=== PATIENT | male | born 1955 | race Caucasian/White ===

== ENCOUNTER → 2016-10-24 | Outpatient (CLI) | payer OTHER ==
[~2016-10-24] MED LIST: LISINOPRIL10 MG PO
[2016-10-24 14:10] LABS: THYROID STIMULATING HORMONE 2.29 uIU/ml (0.34-5.60)
[2016-10-24 14:17] LABS: FREE THYROXIN (T4) 0.85 ng/dL (0.58-1.64)
== END | disposition home or self-care (01) ==
LOC: CLAB 12:39
PROVIDERS: Specialist
DX: R53.83 Other fatigue (principal)
CPT/HCPCS: 36415; 84439; 84443